=== PATIENT | female | born 1965 | race Caucasian/White ===

== ENCOUNTER 2017-04-23 15:05 | Emergency (ER) | payer OTHER ==
[~2017-04-23] VITALS: Ht 170.2 cm; Wt 88.6 kg
[~2017-04-23 15:05] MED LIST: ASPIRIN E.C. 8181 MG PO; ATIVAN 0.50.5 MG/TAB PO; B100 COMPLEX UL1 TA1 PO; CARDIZEM120 MG; CELEXA 20MG20 MG/TAB PO; CLARITIN 1010 MG/TAB PO; DHEA25 M1 PO; FLAXSEED OIL1 CAP; FLONASE NASAL S16 GM NS; FOLIC ACID0.8 MG; IBU800 M1 PO; NEXIUM 40MG40 MG PO; NORCO 325 MG-51 TAB PO; SINGULAIR 110 MG/TAB PO; VITAMIN B COMPL1 T16 PO; VITAMIN D3400 IU; ZOLOFT 50MG50 MG; [UNRECOGNIZED DRUG - OTHER]; [UNRECOGNIZED DRUG - OTHER]
[2017-04-23 15:08] VITALS: BP 108/52; PULSE 80; TEMP 98.3
[2017-04-23] MEDS ORDERED: SINGULAIR 110 MG/TAB PO (15:12)
[2017-04-23] MEDS ORDERED: NORCO 325 MG-51 TAB PO (15:55)
[2017-04-23] MEDS ORDERED: BACTRIM DS 8001 TAB PO (15:55)
== END 2017-04-23 16:06 | disposition home or self-care (01) ==
LOC: COL.ER 15:05
DX: L03.115 Cellulitis of right lower limb (principal); I48.91 Unspecified atrial fibrillation; Z79.82 Long term (current) use of aspirin

== ENCOUNTER 2017-05-31 16:10 | Emergency (ER) | payer OTHER ==
[~2017-05-31] VITALS: Ht 170.2 cm; Wt 86.4 kg
[~2017-05-31 16:10] MED LIST changes: +BACTRIM DS 8001 TAB PO
[2017-05-31 16:12] VITALS: BP 120/68; PULSE 72; TEMP 97.8
[2017-05-31] MEDS ORDERED: ZANAFLEX2 MG PO (16:15)
[2017-05-31] MEDS ORDERED: ULTRAM 50MG TAB50 MG PO (16:16)
== END 2017-05-31 17:20 | disposition home or self-care (01) ==
LOC: COL.ER 16:10
DX: G89.29 Other chronic pain (principal); M54.9 Dorsalgia, unspecified; I48.91 Unspecified atrial fibrillation; Z79.82 Long term (current) use of aspirin
CPT/HCPCS: J2360

== ENCOUNTER 2018-06-18 14:46 | Day surgery (SDC) | payer BC, OTHER ==
[~2018-06-18] VITALS: Ht 170.2 cm; Wt 95.2 kg
[~2018-06-18 14:46] MED LIST changes: +ULTRAM 50MG TAB50 MG PO; +ZANAFLEX2 MG PO
[2018-06-18 15:01] VITALS: BP 113/64; PULSE 75; TEMP 97.3
[2018-06-18] MEDS ORDERED: LEVOXYL0.05 MG PO (15:04)
[2018-06-18] MEDS ORDERED: CYMBALTA 30MG30 MG PO (15:04)
[2018-06-18] MEDS ORDERED: NORCO 325 MG-7.1 TAB PO (15:05)
[2018-06-18] MEDS ORDERED: ATIVAN 1MG T1 MG/TAB PO (15:06)
[2018-06-18] MEDS ORDERED: TAMBOCOR 1100 MG/TAB PO (15:06)
[2018-06-18 16:55] VITALS: BP 115/58; PULSE 78; TEMP 97.1
[2018-06-18 17:10] VITALS: BP 95/75; PULSE 67
[2018-06-18 17:25] VITALS: BP 110/62; PULSE 66
[2018-06-18 17:40] VITALS: BP 113/59; PULSE 69
== END 2018-06-18 17:50 | disposition home or self-care (01) ==
LOC: SDCO 14:46
DX: Z12.11 Encounter for screening for malignant neoplasm of colon (principal); K57.30 Diverticulosis of large intestine without perforation or abscess without bleeding; K64.1 Second degree hemorrhoids; K64.4 Residual hemorrhoidal skin tags; K25.9 Gastric ulcer, unspecified as acute or chronic, without hemorrhage or perforation; K62.5 Hemorrhage of anus and rectum; I48.91 Unspecified atrial fibrillation; G89.29 Other chronic pain; M54.9 Dorsalgia, unspecified; Z79.891 Long term (current) use of opiate analgesic; Z87.891 Personal history of nicotine dependence; Z83.79 Family history of other diseases of the digestive system
CPT/HCPCS: J2704; J7030

== ENCOUNTER 2019-10-09 15:24 | Emergency (ER) | payer OTHER ==
[~2019-10-09] VITALS: Ht 170.2 cm; Wt 97.0 kg
[~2019-10-09 15:24] MED LIST changes: +ATIVAN 1MG T1 MG/TAB PO; +CYMBALTA 30MG30 MG PO; +LEVOXYL0.05 MG PO; +NORCO 325 MG-7.1 TAB PO; +TAMBOCOR 1100 MG/TAB PO
[2019-10-09 15:51] VITALS: BP 127/69
[2019-10-09] MEDS ORDERED: CEPHALEXIN500 M1 PO ×2 (17:13→17:16)
[2019-10-09 17:25] VITALS: PULSE 71; TEMP 97.6
== END 2019-10-09 17:31 | disposition home or self-care (01) ==
LOC: COL.ER 15:24
DX: I80.9 Phlebitis and thrombophlebitis of unspecified site (principal); Z79.82 Long term (current) use of aspirin

== ENCOUNTER 2021-12-14 13:16 | Outpatient (CLI) | payer OTHER ==
[~2021-12-14] VITALS: Ht 170.2 cm; Wt 99.2 kg
[~2021-12-14 13:16] MED LIST changes: +CEPHALEXIN500 M1 PO
[2021-12-14] MEDS ORDERED: CYMBALTA 60MG60 MG PO (13:45)
[2021-12-14] MEDS ORDERED: ESTRACE 1MG1 MG/TAB PO (13:45)
[2021-12-14] MEDS ORDERED: PROTONIX 40MG T40 MG PO (13:46)
[2021-12-14] MEDS ORDERED: CARDIZEM CD 12120 MG PO (13:47)
[2021-12-14 14:06] VITALS: BP 140/73; PULSE 68; TEMP 97.8
[2021-12-14 14:29] VITALS: BP 139/68; PULSE 82; TEMP 97.8
--- NOTE | 2021-12-14 15:02 | NUR ---
Discharge intructions given. Transferred to private car by
== END 2021-12-14 15:03 | disposition home or self-care (01) ==
LOC: COL.CAR 13:16
DX: R00.2 Palpitations (principal)

== ENCOUNTER 2023-08-01 09:07 | Day surgery (SDC) | payer OTHER ==
[2023-08-01] VITALS (10 sets, daily range): BP systolic 116–136; BP diastolic 50–71; PULSE 68–80; TEMP 97.8
[~2023-08-01] VITALS: Ht 170.3 cm; Wt 101.2 kg
[~2023-08-01 09:07] MED LIST changes: +CARDIZEM CD 12120 MG PO; +CYMBALTA 60MG60 MG PO; +ESTRACE 1MG1 MG/TAB PO; +PROTONIX 40MG T40 MG PO
[2023-08-01 09:48] LABS: HEMATOCRIT 39.5 % (37.0-47.0); HEMOGLOBIN 12.6 g/dl (12.5-16.0); MEAN CELL VOLUME 90 fl (80.0-100.0); MEAN CORPUSCULAR HEMOGLOBIN 29 pg (27-31); MEAN CORPUSCULAR HGB CONC 32 g/dl (33.0-37.0); MEAN PLATELET VOLUME 9.5 fl (7.4-10.4); PLATELET COUNT 300 K/mm3 (130-400); RED BLOOD COUNT 4.41 M/mm3 (4.10-5.30); REDCELL DISTRIBUTION WIDTH-CV 13.5 % (11.5-14.5)
[2023-08-01 10:02] LABS: CALCIUM 9.5 mg/dL (8.4-10.2); CREATININE, serum 0.73 mg/dL (0.57-1.11); POTASSIUM 4.2 mmol/L (3.5-4.5)
[2023-08-01 10:12] LABS: PROTHROMBIN TIME 10.8 SECONDS (9.7-12.8)
[2023-08-01 10:14] LABS: PARTIAL THROMBOPLASTIN TIME 32.9 SECONDS (26.0-37.0)
[2023-08-01] MEDS ORDERED: FLORAJEN DIGES1 EACH PO (10:18)
[2023-08-01] MEDS ORDERED: DAZIDOX10 MG PO (10:18)
--- NOTE | 2023-08-01 14:38 | NUR ---
Refer to [facility] report for procedural sedation and notes
--- NOTE | 2023-08-01 18:02 | NUR ---
PT TOLERTED RECOVERY PERIOD WELL. RIGHT RADIAL TR BAND WAS DEFLATED BY 2 ML AT A TIME AND REMAINED FREE FROM SIGNS OF HEMATOMA AND BLEEDING. PT VS REMAINED WITHIN HER NORMAL LIMITS AND PT IV WAS DISCONTINUED UPON DISCHARGE. PT VERBALIZED UNDERSTANDING OF DISCHARGE INSTRUCTIONS AND WAS FREE FROM ACUTE CONCERNS AND COMPLAINTS AT TIME OF DISCHARGE.
== END 2023-08-01 18:04 | disposition home or self-care (01) ==
LOC: COL.CAR 09:07
PROVIDERS: Internal Medicine Interventional Cardiology
DX: R06.02 Shortness of breath (principal); R94.39 Abnormal result of other cardiovascular function study; R53.83 Other fatigue; G47.30 Sleep apnea, unspecified; Z99.81 Dependence on supplemental oxygen
CPT/HCPCS: C1769; J1644; J2250; J3010; Q9967